=== PATIENT | female | born 1955 | race Caucasian/White ===

== ENCOUNTER → 2016-05-01 | Outpatient (CLI) | payer BC ==
--- NOTE | 2016-05-01 19:31 | RADIOLOGY REPORT PS360 ---
DEXA SCAN.-BONE DENSITY STUDY HIPS AND LUMBAR SPINE HISTORY: Postmenopausal female Family history of osteoporosis taking thyroid medication previous hysterectomy postmenopausal females 61-year-old TECHNIQUE: DEXA scan hip and lumbar spine The most complete data summary and color graphic presentation of the today's ( and any prior ) DEXA findings are available in PACS. Definition and treatment guidelines included. COMPARISON: January 2014 DEXA LUMBAR SPINE: Osteopenia with Borderline osteoporosis L1 vertebral body demonstrates the lowest T score -2.6 with BMD0.817 g/cm sq Overall mean lumbar L1-L4 T score -2.4 with BMD0.893 g/cm sq . January 2014 prior DEXA the mean T score -2.6 with BMD was0.871g/cm sq Thus when comparing today's study to the prior exam there's been a 2.5% % increasing mean bone density at the lumbar spine. HIPS: Osteopenia Femoral neck density is best predictor of hip fracture risk . Right femoral neck demonstrates the lowest T score -2.0 with BMD0.763 g/cm sq . Left femoral neck T score -1.6 Today averaging region the mean Hip Mean T score -1.4 with BMD0.832 g/cm sq . January 2014 DEXA T score -1.5 with BMD 0.82. Sq Thus this reflects a 1.3% increasein overall mean bone density at the hips in the interval. IMPRESSION 1. LUMBAR SPINE: Osteopenia/Borderline osteoporosis. Overall T score -2.4. This reflects a 2.5% increase in bone density versus 2013 2. HIPS: Osteopenia Overall osteopenia as well as osteopenia and femoral neck bilateral. 1.3% increase bone density since previous comparison study January 2014 WHO criteria for post-menopausal, Women: Normal: T-score at or above -1 SD Osteopenia: T-score between -1 and -2.5 SD Osteoporosis: T-score at or below -2.5 SD
== END ==
LOC: RAD 04-30 09:30
DX: M81.0 Age-related osteoporosis without current pathological fracture (principal)